=== PATIENT | female | born 2000 | race Two or more races ===

== ENCOUNTER 2020-06-16 01:01 | Emergency (ER) | payer OTHER, SELFPAY ==
[2020-06-16 01:07] VITALS: BP 124/64; PULSE 65; RESP 20; TEMP 36.3; O2SAT 100
--- NOTE | 2020-06-16 01:52 | ED.GENADULT ---
HPI - General Adult General Chief complaint: Skin/Abscess/Foreign Body Stated complaint: Rash Time Seen by Provider: 06/16/20 01:30 Source: patient Mode of arrival: ambulatory Limitations: no limitations History of Present Illness HPI narrative: A 19-year-old female comes into the emergency department tonight with complaints of a rash across her face. She notes that this started over the last day or so. Patient does note that it is starting to spread. She also notes it is pruritic. Patient states that when she is sweating from working out this seems to exacerbate it. She has not taken any antihistamines or anything else to help. Related Data Allergies Allergy/AdvReac Type Severity Reaction Status Date / Time No Known Allergies Allergy Verified 06/16/20 01:57 Review of Systems Review of Systems: Narrative: CONSTITUTIONAL: Denies fever, chills, or sweats. EYES: Denies visual changes, redness, or discharge. ENT: Denies rhinorrhea, congestion, sore throat, or otalgia. CARDIOVASCULAR: Denies chest pain, palpitations, or edema. RESPIRATORY: Denies cough or dyspnea. GASTROINTESTINAL: Denies abdominal pain, nausea, vomiting, or diarrhea. GENITOURINARY: Denies dysuria or hematuria. SKIN: Denies rash or itching. MUSCULOSKELETAL: Denies back pain, joint pain, or myalgia. NEUROLOGIC: Denies headache, numbness, dizziness, or weakness. PSYCHIATRIC: Denies anxiety or depression. [facility] Social History Social History Gender identity (if verbalized by the patient): Female Exam Narrative: Exam Narrative: GENERAL: Well-appearing, well-nourished, and in no acute distress. HEAD: Normocephalic, atraumatic. Erythematous papular rash noted across the face EYES: PERRLA and EOMI. ENT: Nares clear, no rhinorrhea or epistaxis. Mucous membranes moist. NECK: Supple. No adenopathy or masses. No carotid bruits or JVD CHEST: Clear to auscultation. No respiratory distress. No wheezes rales or rhonchi HEART: Regular rate and rhythm. No murmur heard. Normal peripheral pulses. ABDOMEN: Soft, nontender, nondistended, normal active bowel sounds. EXTREMITIES: Normal range of motion. No edema. SKIN: Warm, dry, no rash. NEURO: No focal deficits. Alert and oriented x3. PSYCH: Normal mood and affect. Course Vital Signs Vital signs: Vital Signs Temperature 36.3 C L 06/16/20 01:07 Pulse Rate 65 06/16/20 01:07 Respiratory Rate 20 06/16/20 01:07 Blood Pressure 124/64 06/16/20 01:07 Pulse Oximetry 100 06/16/20 01:07 Temperature 36.3 C L 06/16/20 01:07 Pulse Rate 65 06/16/20 01:07 Respiratory Rate 20 06/16/20 01:07 Blood Pressure 124/64 06/16/20 01:07 Pulse Oximetry 100 06/16/20 01:07 Medical Decision Making MDM Narrative Medical decision making narrative: In brief this 19-year-old female came into the emergency department complaints of a rash across her face and nose. Patient did state that this seemed to be reactive and was irritated by sweat and working out. I did asked the patient about a new mask, laundry detergents, facial soaps, make-up, etc. She denies all of these. It is unclear what the patient is reacting to but informed her we will treat this empirically with steroids and antihistamines. Vital Signs Vital Signs: Vital Signs Temperature 36.3 C L 06/16/20 01:07 Pulse Rate 65 06/16/20 01:07 Respiratory Rate 20 06/16/20 01:07 Blood Pressure 124/64 06/16/20 01:07 Pulse Oximetry 100 06/16/20 01:07 Temperature 36.3 C L 06/16/20 01:07 Pulse Rate 65 06/16/20 01:07 Respiratory Rate 20 06/16/20 01:07 Blood Pressure 124/64 06/16/20 01:07 Pulse Oximetry 100 06/16/20 01:07 Discharge Plan Discharge Clinical Impression: Contact dermatitis Qualifiers: Contact dermatitis type: allergic Contact dermatitis trigger: unspecified trigger Qualified Code(s): L23.9 - Allergic contact dermatitis, unspecified cause Patient Dispo
[2020-06-16] MEDS: predniSONE 20 MG TABLET 40 MG PO (02:02)
[2020-06-16] MEDS: hydrOXYzine HCL 25 MG TABLET 50 MG PO (02:02)
[2020-06-16 02:25] VITALS: BP 124/68; PULSE 75; RESP 16; TEMP 36.8; O2SAT 99
== END 2020-06-16 02:26 | disposition home or self-care (01) ==
PROVIDERS: Emergency Provider Emergency Medicine; PCP Pediatrics
DX: L23.9 Allergic contact dermatitis, unspecified cause (principal)
CPT/HCPCS: 99283; A9270; J7512

== ENCOUNTER 2020-06-23 16:26 | Emergency (ER) | payer OTHER, SELFPAY ==
[2020-06-23 16:39] VITALS: BP 126/80; PULSE 75; RESP 18; TEMP 36.6; O2SAT 100
[2020-06-23] MEDS: FAMOTIDINE 20 MG/2 ML VIAL IV PUSH (17:24)
[2020-06-23] MEDS: diphenhydrAMINE HCl INJ 50 MG/ML VIAL 25 MG IV PUSH (17:24)
[2020-06-23] MEDS: KETOROLAC 30 MG/ML VIAL (*BKC) IV PUSH (17:24)
[2020-06-23] MEDS: SODIUM CHLORIDE 0.9% IV 1,000 ML 999 ML IV CONT (17:25)
[2020-06-23] MEDS: PROCHLORPERAZINE EDISYLATE 10 MG/2 ML VIAL IV PUSH (17:25)
--- NOTE | 2020-06-23 17:34 | ED.GENADULT ---
HPI - General Adult General Chief complaint: Headache Stated complaint: Headache Time Seen by Provider: 06/23/20 16:28 Source: patient Mode of arrival: ambulatory Limitations: no limitations History of Present Illness HPI narrative: Patient is a 19-year-old female who presents to emergency department for evaluation of headache that has been present for the last several days that is diffuse and described as tension in nature patient does note history of stress. Patient denies any fever chills notes some slight nausea attributed to the headache patient notes that she has had some history of headaches of recent. But it increased in intensity over the last several days. Patient denies any recent illness injury trauma or other complaints. Patient has attempted [id number] medications with minimal improvement. Patient has follow-up with primary care on Saturday for this. Related Data Home Medications Medication Instructions Recorded Confirmed clindamycin phosphate TOPICAL 06/23/20 06/23/20 doxycycline hyclate 06/23/20 Allergies Allergy/AdvReac Type Severity Reaction Status Date / Time No Known Allergies Allergy Verified 06/23/20 16:44 Review of Systems Review of Systems: All systems reviewed & are unremarkable except as noted in HPI and below PMFSH Social History Social History Gender identity (if verbalized by the patient): Female Exam Narrative: Exam Narrative: GENERAL: Well-appearing, well-nourished, and in no acute distress. HEAD: Normocephalic, atraumatic. EYES: PERRLA and EOMI. ENT: Nares clear, no rhinorrhea or epistaxis. Mucous membranes moist. CHEST: Clear to auscultation. No respiratory distress. No wheezes rales or rhonchi HEART: Regular rate and rhythm. No murmur heard. EXTREMITIES: Normal range of motion. No edema. SKIN: Warm, dry, no rash. NEURO: No focal deficits. Alert and oriented x3. Cranial nerves II through XII grossly intact PSYCH: Normal mood and affect. Course Course Emergency Course: Patient in the room no distress aware of case findings treatment plan diagnosis Vital Signs Vital signs: Vital Signs Temperature 97.9 F 06/23/20 16:39 Pulse Rate 75 06/23/20 16:39 Respiratory Rate 18 06/23/20 16:39 Blood Pressure 126/80 06/23/20 16:39 Pulse Oximetry 100 06/23/20 16:39 Temperature 97.9 F 06/23/20 16:39 Pulse Rate 75 06/23/20 16:39 Respiratory Rate 18 06/23/20 16:39 Blood Pressure 126/80 06/23/20 16:39 Pulse Oximetry 100 06/23/20 16:39 Medical Decision Making MDM Narrative Medical decision making narrative: Patients headache was not sudden or maximal in onset. There are o focal neurological deficits on exam. Subarachnoid hemorrhage is felt to be unlikey at this time. There is no history of fever, and neck is supple without meningismus, making meningitis unlikely. No traumatic history or signs of trauma on exam. No risk factors for CVA, risk factors reviewed. NO ocular signs on exam and in history to suggest acute glaucoma. Patients headache is felt to be a reasonable candidate for outpatient evaluation Vital Signs Vital Signs: Vital Signs Temperature 97.9 F 06/23/20 16:39 Pulse Rate 75 06/23/20 16:39 Respiratory Rate 18 06/23/20 16:39 Blood Pressure 126/80 06/23/20 16:39 Pulse Oximetry 100 06/23/20 16:39 Temperature 97.9 F 06/23/20 16:39 Pulse Rate 75 06/23/20 16:39 Respiratory Rate 18 06/23/20 16:39 Blood Pressure 126/80 06/23/20 16:39 Pulse Oximetry 100 06/23/20 16:39 Discharge Plan Discharge Clinical Impression: Headache Patient Disposition: Home, Self-Care Condition: Stable Instructions: Antibiotic Form, Acute Headache (ED) Additional Instructions: Follow up with your primary care doctor in 4 days for re-evaluation. Go to ER for worsening pain, vision changes, nausea/vomiting, fever/chills, weakness, chest pain, short
[2020-06-23 18:53] VITALS: BP 123/72; PULSE 73; RESP 18; O2SAT 100
== END 2020-06-23 18:54 | disposition home or self-care (01) ==
PROVIDERS: Emergency Provider Emergency Medicine; PCP Physician Assistant
DX: R51.9 Headache, unspecified (principal)
CPT/HCPCS: 96361; 96374; 96375; 99284; J0780; J1200; J1885; J7030

== ENCOUNTER 2020-06-28 14:07 | Outpatient (CLI) | payer OTHER, SELFPAY ==
--- NOTE | ~2020-06-28 | CT_ITS ---
EXAMINATION: CT BRAIN W/O DATE: 06/28/2020 14:38 INDICATION: Headache for 5 days TECHNIQUE: Computed tomography (CT) of the head was performed without intravenous contrast. The dose- length product was 605.33 mGy-cm. Automated exposure control and iterative reconstruction technique w ere employed. COMPARISON: No prior studies for comparison. FINDINGS: Normal brain parenchymal volume for age. Normal toribio-white differentiation. No acute intrac ranial hemorrhage, infarction, mass or mass effect. No ventriculomegaly or midline shift. Midline sagittal images demonstrate a normal corpus callosum, c raniovertebral junction and sella turcica. Basilar cisterns are patent. Paranasal sinuses and mastoids are pneumatized. No depressed skull fractures. IMPRESSION: 1. No acute intracranial abnormality. Reviewed, dictated and finalized at location A. [employer]MENT [employer] COORDINATOR
== END 2020-06-28 14:08 | disposition home or self-care (01) ==
PROVIDERS: PCP Physician Assistant; Visit Provider Physician Assistant
DX: R51.9 Headache, unspecified (principal)
CPT/HCPCS: 70450

== ENCOUNTER → 2022-02-14 10:32 | Outpatient (CLI) | payer OTHER, SELFPAY ==
--- NOTE | ~2022-02-14 | US_ITS ---
EXAMINATION: US breast BI complete HISTORY: Bilateral breast pain TECHNIQUE: Complete bilateral breast ultrasound is performed including all four quadrants and the sub areolar aspects of both breasts. FINDINGS: No suspicious cystic or solid mass is identified in either breast. No sonographic correlate is identified for the patient's reported breast pain. IMPRESSION: No specific sonographic correlate is identified for the patient's reported breast pain. Further evalu ation at this time should be based on clinical assessment. Continued follow-up physical examination i s recommended. BI-RADS Category 1: Negative Reviewed, dictated and finalized at location A. IMPRESSION: No specific sonographic correlate is identified for the patient's reported rubin st pain. Further evaluation at this time should be based on clinical assessment . Continued follow-up physical examination is recommended. BI-RADS Category 1: Negative
== END ==
PROVIDERS: PCP Physician Assistant; Visit Provider Nurse Practitioner
DX: N64.4 Mastodynia (principal)
CPT/HCPCS: 76641

== ENCOUNTER 2023-04-04 16:48 | Emergency (ER) | payer OTHER, SELFPAY ==
[2023-04-04] VITALS (18 sets, daily range): BP systolic 98–108; BP diastolic 52–69; PULSE 69–88; RESP 9–24; TEMP 36.6; O2SAT 98–100
--- NOTE | 2023-04-04 17:16 | ED.OVERDOSE ---
HPI - Overdose General Chief Complaint: Overdose <Francoise Chavarria APRN - Last Filed: 04/04/23 19:19> Stated Complaint: overdose <Francoise Chavarria APRN - Last Filed: 04/04/23 19:19> Time Seen by Provider: 04/04/23 17:16 <Francoise Chavarria APRN - Last Filed: 04/04/23 19:19> Source: patient and family (parents) <Francoise Chavarria APRN - Last Filed: 04/04/23 19:19> Mode of arrival: ambulatory <Francoise Chavarria APRN - Last Filed: 04/04/23 19:19> Limitations: no limitations <Francoise Chavarria APRN - Last Filed: 04/04/23 19:19> History of Present Illness HPI Narrative: patient is a pleasant 22 yo female with a past medical hx as noted below who presents to the ED today ambulatory with a steady gait for evaluation of taking 5 of her prescribed to 7.5 mg BuSpar. Patient states that she took it due to being very stressed as she is applying for residency. She states she did not take an attempt to overdose and kill herself or harm herself. She denies any suicidal ideations. She states she sees a counselor regularly and just saw them on a Saturday. She states that she took 5 thinking that it would help with her stress and help her catch up . She states that she is not very good about taking her medications regularly. She has not been taking the fluoxetine for a while now. She denies any past psychiatric hospitalizations. Denies any past history of suicidal attempts. She states she has dealt with anxiety and depression for a while. Her parents are here with her. She states that she took them about 1 hour before arriving to the ER. She states that she didn't feel good after and was nauseated and threw up when she got here and after throwing up she does feel better. she denies any current chest pain, shortness of breath, dizziness, abdominal pain, vision changes, headache, confusion, lethargy, urinary symptoms, or any other symptoms. <Francoise Chavarria APRN - Last Filed: 04/04/23 19:19> Related Data Allergies/Adverse Reactions: Allergies Allergy/AdvReac Type Severity Reaction Status Date / Time No Known Allergies Allergy Verified 10/25/22 07:36 <Francoise Chavarria APRN - Last Filed: 04/04/23 19:19> Review of Systems Review of Systems: CONSTITUTIONAL: Denies fever, chills, or sweats. EYES: Denies visual changes, redness, or discharge. ENT: Denies rhinorrhea, congestion, sore throat, or otalgia. CARDIOVASCULAR: Denies chest pain, palpitations, or edema. RESPIRATORY: Denies cough or dyspnea. GASTROINTESTINAL: +nausea and one episode of vomiting. Denies abdominal pain, or diarrhea. GENITOURINARY: Denies dysuria or hematuria. SKIN: Denies rash or itching. MUSCULOSKELETAL: Denies back pain, joint pain, or myalgia. NEUROLOGIC: Denies headache, numbness, or weakness. PSYCHIATRIC: +anxiety/depression. denies suicidal ideations. <Francoise Chavarria APRN - Last Filed: 04/04/23 19:19> All systems reviewed & are unremarkable except as noted in HPI and below <Francoise Chavarria APRN - Last Filed: 04/04/23 19:19> PMFSH Family History Family History: Family History Mother Hypertension <Francoise Chavarria APRN - Last Filed: 04/04/23 19:19> Social History Social History: Social History Smoking status: Never smoker Alcohol intake: current Substance use: never Substance use type: does not use Lack of Transportation: No Lack of Food: Never True Current Housing: I Have Housing Concerned About Future Housing: No Difficulty Paying Gas/Electric Bills: No Difficulty Paying for Meds: No Currently Unemployed: No Education: Master's Degree or Higher Difficulty w/ Childcare or Family Care: No Gender identity (if verbalized by the patient): Female <Francoise Chavarria APRN - Last Filed: 04/04/23 19:19> Exam Narrative: GENERAL: Well-appearing, well-nourished, and in no acute
--- NOTE | 2023-04-04 17:30 | PC.NURSE ---
SPOKE WITH [facility] AT . THEY RECOMMEND SUPPORTIVE CARE. NOT TOXIC LEVEL OF INGESTION. PEAK IS 40-90MINUTES AFTER INGESTION. 1/2 LIFE IS 2-3*. VERY SMALL RISK OF SZ. NAUSEA,VOMITING, ABD PAIN, DIZZINESS, DROWSINESS, AND MYOSIS ARE GIVEN POTENTIAL SIDE EFFECTS. RECOMMEND TO DRAW ETOH,SALICYLATE AND ACETAMINOPHEN LEVEL AND TO SCREEN FOR SI. ALSO RECOMMENDED ADDITIONAL ROUTINE LABS.
[2023-04-04] MEDS: ONDANSETRON HCL ODT 4 MG TABLET PO (17:52)
[2023-04-04 18:06] LABS: Basophils Absolute Auto 0.1 K/mm3 (0.0-0.1); Basophils Percent Auto 0.7 % (0.2-1.2); Eosinophils Absolute Auto 0.1 K/mm3 (0-0.3); Eosinophils Percent Auto 0.9 % (0-4.4); Hematocrit 41.6 % (37.0-47.0); Immature Granulocyte Absolute 0.02 K/mm3 (0.00-0.031); Immature Granulocyte Percent A 0.3 % (0-0.5); Lymphocytes Absolute Auto 1.75 K/mm3 (0.9-3.2); Lymphocytes Percent Auto 23.6 % (18.3-44.2); Mean Corpuscular HGB Conc 31.3 g/dl (32-36); Mean Corpuscular Hemoglobin 24.6 pg (26-34); Mean Corpuscular Volume 78.6 fl (80-100); Monocytes Absolute Auto 0.5 K/mm3 (0.1-0.6); Monocytes Percent Auto 6.3 % (2.6-8.5); Neutrophils Absolute Auto 5.1 K/mm3 (1.3-6.7); Neutrophils Percent Auto 68.2 % (45.5-73.1); Platelet Count Result 213 k/mm3 (150-375); Red Blood Count 5.29 M/mm3 (4.2-5.4); Red Cell Distribution Width 15.1 % (11.5-14.5); White Blood Count 7.4 K/mm3 (4.5-10.0)
[2023-04-04 18:20] LABS: Acetaminophen < 10 ug/mL (10-30); Ethanol < 10 mg/dL (<10); Salicylate < 1.0 mg/dL (2-20)
[2023-04-04 18:23] LABS: Appearance Urine Cloudy (Clear); Bacteria Urine None Seen /hpf; Bilirubin Urine Negative (Negative); Blood Urine Negative (Negative); Color Urine Yellow (Yellow); Glucose Urine UA Negative (Negative); Ketones Urine 1+ mg/dL (Negative); Leukocyte Esterase Ur Negative LEU/UL (Negative); Nitrate Urine Negative (Negative); Non Pathogenic Casts 0-2; Protein Urine Negative (Negative); RBC Urine 0-2 /hpf (0-2); Specific Grav Ur 1.022 (1.001-1.035); Squamous Epithelial Cell Urine Moderate /hpf (Few); pH Urine 6.5 (5.0-9.0)
[2023-04-04 18:26] LABS: Add Urine Microscopic? YES
[2023-04-04 18:34] LABS: Alanine Aminotransferase 19 U/L (6-35); Albumin Level 4.9 g/dL (3.5-5.1); Alkaline Phosphatase 45 U/L (38-126); Anion Gap 8 mmol/L (8-16); Aspartate Amino Transferase 31 U/L (14-36); Bilirubin,Total 0.5 mg/dL (0.2-1.3); Blood Urea Nitrogen 20 mg/dL (7-17); Calcium 9.6 mg/dL (8.4-10.2); Carbon Dioxide 26 mmol/L (22-30); Chloride 103 mmol/L (98-107); Estimated Glomerular Filt Rate > 60; Glucose 92 mg/dL (65-110); Potassium 3.7 mmol/L (3.4-5.0); Sodium 137 mmol/L (137-145)
[2023-04-04 18:36] LABS: Amphetamine Screen Urine Negative (Negative); Barbiturate Screen Urine Negative (Negative); Benzodiazepines Screen Urine Negative (Negative); Cannabinoid Screen Urine Negative (Negative); Cocaine Screen Urine Negative (Negative); Methadone Screen Urine Negative (Negative); Opiate Screen Urine Negative (Negative); Phencyclidine Screen Urine Negative (Negative)
--- NOTE | 2023-04-04 19:19 | PC.NURSE ---
spoke w/ poison control. pt. reports pt. case is closed. erp made aware.
[2023-04-04 19:58] LABS: Influenza A QL RT-PCR Negative (Negative); Influenza B QL RT-PCR Negative (Negative); RSV RNA, RT-PCR Negative (Negative); SARS-CoV-2 RNA PCR Negative (Negative)
== END 2023-04-04 21:00 | disposition home or self-care (01) ==
PROVIDERS: Emergency Provider Nurse Practitioner; PCP Physician Assistant
DX: T43.591A Poisoning by other antipsychotics and neuroleptics, accidental (unintentional), initial encounter (principal); F41.9 Anxiety disorder, unspecified; Z11.52 Encounter for screening for COVID-19
CPT/HCPCS: 36415; 80053; 80307; 81001; 81025; 84443; 85025; 87086; 87637; 99284; A9270